=== PATIENT | female | born 1985 | race Caucasian/White ===

== ENCOUNTER 2016-08-25 07:45 | Inpatient (IN) | payer OTHER ==
[~2016-08-25] VITALS: Ht 165.1 cm; Wt 110.2 kg
[2016-08-25] VITALS (15 sets, daily range): BP systolic 109–141; BP diastolic 59–86
[~2016-08-25 07:45] MED LIST: ALBUTEROL SULF8.5 GM IH; AVELOX400 MG PO; Advair HFA 115/21 IH; DELTASONE20 MG PO; ENDOCET 5-3251 EACH PO; FLEXERIL10 MG PO; HYDROCODON-ACE1 EAC7 PO; IBUPROFEN600 MG PO; MEDROL DOSEPAK4 MG PO; MOTRIN600 MG PO; NOHOMEMEDS; PEN-VEE K,VEET500 MG PO; PERCOCET 5/31 TABLET PO; PROTONIX40 MG PO; THERAGRAN1 TABLET PO; TRAMADOL HCL50 MG PO; ULTRAM50 MG PO; VITAMIN473 ML PO; ZOFRAN ODT4 MG PO; no home
[2016-08-25 09:30] LABS: EOSINOPHIL (%) 1.8 % (0-5); EOSINOPHIL COUNT 0.2 K/uL (0-0.3); HEMATOCRIT 36.1 % (36.0-46.0); IMMATURE GRANULOCYTE (%) 0.6 % (0.0-0.7); IMMATURE GRANULOCYTE COUNT 0.1 K/uL; INSTRUMENT ABS NEUTROPHIL CT 7.4 K/uL; LYMPHOCYTE COUNT 2.5 K/uL (1.0-2.8); MCH 30.9 PG (29.0-34.0); MCHC 33.8 G/DL (30.0-36.0); MCV 91.4 FL (83-99); MEAN PLAT.VOLUME 10.1 uM^3 (9.5-12.4); MONOCYTE (%) 7.7 % (3-12); MONOCYTE COUNT 0.9 K/uL (0-0.8); NEUTROPHIL (%) 66.9 % (45-76); NEUTROPHIL COUNT 7.4 K/uL (1.8-6.4); PLATELET COUNT 147 K/uL (156-360); RBC DIS.WIDTH-CV 13.3 % (11.8-14.6); RBC DIS.WIDTH-SD 44.8 % (39-53); RED BLOOD COUNT 3.95 M/uL (3.80-5.20)
[2016-08-25 10:46] LABS: AMPHETAMINES QUANT VALUE 0 NG/ML; BARBITUATES QUANT VALUE 0 NG/ML; BENZODIAZEPINES QUANT VALUE 0 NG/ML; BENZODIAZEPINES, URINE SCREEN Negative (200 ng/mL); MARIJUANA QUANT VALUE 0 NG/ML; OPIATES QUANTITATIVE VALUE 0 NG/ML; PHENCYCLIDINE QUANT VALUE 0 NG/ML
[2016-08-26] VITALS (12 sets, daily range): BP systolic 126–159; BP diastolic 55–75
[2016-08-27 03:39] VITALS: BP 128/68
[2016-08-27 07:22] LABS: EOSINOPHIL (%) 1.6 % (0-5); EOSINOPHIL COUNT 0.1 K/uL (0-0.3); HEMATOCRIT 30.3 % (36.0-46.0); IMMATURE GRANULOCYTE (%) 0.5 % (0.0-0.7); INSTRUMENT ABS NEUTROPHIL CT 5.7 K/uL; MCHC 34.3 G/DL (30.0-36.0); MCV 93.2 FL (83-99); MEAN PLAT.VOLUME 10.2 uM^3 (9.5-12.4); MONOCYTE (%) 8.5 % (3-12); MONOCYTE COUNT 0.7 K/uL (0-0.8); NEUTROPHIL (%) 66.4 % (45-76); NEUTROPHIL COUNT 5.7 K/uL (1.8-6.4); PLATELET COUNT 118 K/uL (156-360); RBC DIS.WIDTH-CV 13.6 % (11.8-14.6); RBC DIS.WIDTH-SD 46.5 % (39-53); RED BLOOD COUNT 3.25 M/uL (3.80-5.20); WHITE BLOOD COUNT 8.6 K/uL (4.1-10.2)
[2016-08-27 10:38] VITALS: BP 129/76
[2016-08-27 14:59] VITALS: BP 129/76
[2016-08-27 19:30] VITALS: BP 122/75
[2016-08-27 23:37] VITALS: BP 133/61
[2016-08-28 03:00] VITALS: BP 132/79
[2016-08-28] MEDS ORDERED: ENDOCET 5-3251 EACH PO (06:47)
[2016-08-28] MEDS ORDERED: IBUPROFEN800 MG PO (06:47)
[2016-08-28 06:54] VITALS: BP 125/85
== END 2016-08-28 14:45 | disposition home or self-care (01) | DRG 765 ==
LOC: LDRP-OP → 2WEST 07:46 → LDRP-OP 08:39 → 2WEST 08-26 06:34 → LDRP-OP 09-19 20:14
PROVIDERS: Advanced Practice Midwife; Obstetrics & Gynecology Obstetrics
DX: O48.0 Post-term pregnancy (principal); O41.03X0 Oligohydramnios, third trimester, not applicable or unspecified; Z3A.40 40 weeks gestation of pregnancy; O61.0 Failed medical induction of labor; O62.0 Primary inadequate contractions; O76 Abnormality in fetal heart rate and rhythm complicating labor and delivery; O99.824 Streptococcus B carrier state complicating childbirth; O99.214 Obesity complicating childbirth; E66.9 Obesity, unspecified; O99.334 Smoking (tobacco) complicating childbirth; F17.210 Nicotine dependence, cigarettes, uncomplicated; Z37.0 Single live birth; Z68.30 Body mass index [BMI] 30.0-30.9, adult; O77.9 Labor and delivery complicated by fetal stress, unspecified; Z80.6 Family history of leukemia; Z82.49 Family history of ischemic heart disease and other diseases of the circulatory system
CPT/HCPCS: 80306 90; 85025; 86870; 86900; 86901; 86905; 86920; G0378; J0690; J1885; J2274; J2405; J2540; J7050; J7120